=== PATIENT | female | born 1955 | race Caucasian/White ===

== ENCOUNTER → 2023-10-14 22:00 | Outpatient (REF) | payer MEDICARE, SELFPAY | LOC: DHSLP 22:00 | PROVIDERS: ATTENDING PHYSICIAN Registered Nurse | DX: G47.30 Sleep apnea, unspecified (principal); R06.83 Snoring; G47.8 Other sleep disorders | CPT/HCPCS: 95800 ==

== ENCOUNTER → 2024-01-30 12:11 | Outpatient (REF) | payer MEDICARE, SELFPAY ==
[2024-01-30 12:46] LABS: % Basophils 0.9 % (0-2); % Eosinophils 1.3 % (0-6); % Immature Granulocytes 0.3 % (0-0.5); % Lymphocytes 15.7 % (20.5-51.1); % Neutrophils 75.8 % (42.2-75.2); Absolute Basophils 0.1 10^3/uL (0-0.2); Absolute Eosinophils 0.1 10^3/uL (0-0.7); Absolute Lymphocytes 1.1 10^3/uL (1.2-3.4); Absolute Monocytes 0.4 10^3/uL (0.1-0.6); Absolute Neutrophils 5.3 10^3/uL (1.4-6.5); Hematocrit 40.7 % (37.0-47.0); Hemoglobin 13.6 g/dL (12.0-16.0); Mean Corp Hgb Conc. 33.4 g/dL (33.0-37.0); Mean Corpuscular Hgb 29.8 pg (27.0-31.0); Mean Corpuscular Volume 89.1 fL (81.0-99.0); Mean Platelet Volume 9.9 fL (7.4-10.4); Nucleated Red Blood Cells % 0 %; Platelet Count 343 10^3/uL (130-400); Red Blood Cell Count 4.57 10^6/uL (4.20-5.40); Red Cell Dist. Width 13.7 % (11.5-14.5)
[2024-01-30 12:52] LABS: Blood Urea Nitrogen 34 mg/dl (7-17); Carbon Dioxide 29 mmol/L (22-30); Chloride 102 mmol/L (98-107); Glucose 106 mg/dl (70-99); Sodium 139 mmol/L (135-145); eGFR > 60.00
== END ==
LOC: REG 12:11
PROVIDERS: ATTENDING PHYSICIAN Orthopaedic Surgery; FAMILY PHYSICIAN Internal Medicine
DX: Z01.818 Encounter for other preprocedural examination (principal)
CPT/HCPCS: 36415; 80048; 85025; 93005

== ENCOUNTER → 2024-07-23 16:40 | Outpatient (REF) | payer MEDICARE, SELFPAY | LOC: PAVMRI 16:40 | PROVIDERS: ATTENDING PHYSICIAN Orthopaedic Surgery; FAMILY PHYSICIAN Internal Medicine | DX: M54.40 Lumbago with sciatica, unspecified side (principal); M25.552 Pain in left hip | CPT/HCPCS: 72148; 73721 ==

== ENCOUNTER → 2024-08-10 09:55 | Outpatient (REF) | payer MEDICARE, SELFPAY | LOC: RAD 09:55 | PROVIDERS: ATTENDING PHYSICIAN Nurse Practitioner Adult Health; FAMILY PHYSICIAN Internal Medicine; REFERRING PHYSICIAN Obstetrics & Gynecology Gynecology | DX: R19.02 Left upper quadrant abdominal swelling, mass and lump (principal) | CPT/HCPCS: 76830; 76856 ==

== ENCOUNTER → 2024-10-17 16:37 | Outpatient (REF) | payer MEDICARE, SELFPAY | LOC: RCS 16:37 | PROVIDERS: ATTENDING PHYSICIAN Nurse Practitioner Family; OTHER PHYSICIAN Internal Medicine Interventional Cardiology | DX: R00.2 Palpitations (principal); R06.02 Shortness of breath; E03.9 Hypothyroidism, unspecified; I10 Essential (primary) hypertension | CPT/HCPCS: 93306 ==

== ENCOUNTER → 2024-11-12 13:50 | Outpatient (REF) | payer MEDICARE, SELFPAY | LOC: WDC 13:50 | PROVIDERS: ATTENDING PHYSICIAN Internal Medicine | DX: Z78.0 Asymptomatic menopausal state (principal); Z12.31 Encounter for screening mammogram for malignant neoplasm of breast | CPT/HCPCS: 77063; 77067; 77080 ==

== ENCOUNTER → 2024-11-27 10:45 | Outpatient (REF) | payer MEDICARE, SELFPAY | LOC: PAVMRI 10:45 | PROVIDERS: ATTENDING PHYSICIAN Obstetrics & Gynecology Gynecology; FAMILY PHYSICIAN Internal Medicine | DX: N94.9 Unspecified condition associated with female genital organs and menstrual cycle (principal) | CPT/HCPCS: 72197; A9575 ==

== ENCOUNTER 2025-02-22 10:57 | Emergency (ER) | payer MEDICARE, SELFPAY ==
[2025-02-22] VITALS (7 sets, daily range): BP systolic 132–151; BP diastolic 72–83; PULSE 74–80
[2025-02-22] MEDS: NSS 1000 IV (12:15)
[2025-02-22 12:32] LABS: % Eosinophils 2.8 % (0-6); % Immature Granulocytes 0.3 % (0-0.5); % Lymphocytes 22.5 % (20.5-51.1); % Neutrophils 62.4 % (42.2-75.2); Absolute Eosinophils 0.1 10^3/uL (0-0.7); Absolute Lymphocytes 0.9 10^3/uL (1.2-3.4); Absolute Monocytes 0.4 10^3/uL (0.1-0.6); Absolute Neutrophils 2.5 10^3/uL (1.4-6.5); Hematocrit 37.6 % (37.0-47.0); Hemoglobin 12.5 g/dL (12.0-16.0); Mean Corp Hgb Conc. 33.2 g/dL (33.0-37.0); Mean Corpuscular Hgb 29.9 pg (27.0-31.0); Mean Platelet Volume 9.7 fL (7.4-10.4); Nucleated Red Blood Cells % 0 %; Platelet Count 285 10^3/uL (130-400); Red Blood Cell Count 4.18 10^6/uL (4.20-5.40)
[2025-02-22 12:40] LABS: ALT (SGPT) 15 U/L (0-35); AST (SGOT) 19 U/L (14-36); Albumin 4.1 g/dl (3.5-5.0); Alkaline Phosphatase 50 U/L (38-126); Blood Urea Nitrogen 24 mg/dl (7-17); Calcium 9.9 mg/dl (8.4-10.2); Carbon Dioxide 31 mmol/L (22-30); Chloride 106 mmol/L (98-107); Glucose 110 mg/dl (70-99); Potassium 4.2 mmol/L (3.5-5.1); Sodium 141 mmol/L (135-145); Total Bilirubin 0.4 mg/dl (0.2-1.3); Total Protein 6.2 g/dl (6.3-8.2); eGFR > 60.00
[2025-02-22 12:51] LABS: Troponin I < 0.012 ng/ml
--- NOTE | 2025-02-22 12:53 | ED.GENMED ---
History of Present Illness
General
Chief Complaint: Dizziness
Time Seen by Provider: 02/22/25 11:22
History of Present Illness
History of Present Illness:
69-year-old female with history of hypertension presenting to the emergency department for persistent dizziness. Patient notes in September she was diagnosed with vertigo, has been getting vestibular therapy. She felt like since this morning has
felt like the dizziness is worse. Also notes the dizziness has been more pronounced since December after she fell and struck the back of her head. Notes that she was not evaluated at that time. Denies any present visual changes. Denies weakness or
numbness to extremities. She has been taking Dramamine. Denies chest pain or difficulty breathing. Denies abdominal pain or GI complaints. Denies additional acute medical complaints
Past History
Past History
ED Past Medical History: HTN and Psychiatric
ED Past Surgical History: Gynecological, Orthopedic and Tonsilectomy
Social History
Tobacco: Non-smoker
Alcohol: None
Drug: None
Personal:
Living: with family
Employment: Employed
Family History
Family History: Other
Phy Exam
Physical Exam
Physical Exam:
General: Well-appearing, no clinical signs of dehydration, nontoxic and in no acute distress
HEENT: protecting airway, bilateral horizontal nystagmus, pupils equal and reactive.
Neck: appears supple
CV: Normal heart rate, regular rhythm
Resp: No accessory muscle use, no increased work of breathing, lungs clear to auscultation bilaterally
Abd: Soft and non-distended, no tenderness to palpation, normal bowel sounds
Extremities: No deformities, no swelling, no erythema
Neuro: alert, no focal neurologic deficit
: deferred
Rectal: deferred
Psych: Normal affect
Skin: Intact
Course
Orders/Labs/Results
Orders:
Orders
02/22/25 11:02
ECG [Electrocardiogram (*1)] Urgent
Reason for Study: Vertigo / Dizzy
EKG- Treatment ONCE
02/22/25 12:04
CT Head W/o Iv Contrast Urgent
Comment:
Reason For Exam: dizzy after a fall
Orthostatic VS- Treatment ONCE
0.9% Sodium Chloride 1000 ml [Nss] 1,000 ml IV BOLUS
02/22/25 12:16
Complete Blood Count/With Diff Urgent
Comprehensive Metabolic Panel Urgent
Troponin I Urgent
Abnormal Lab Results
02/22/25
12:16
WBC 4.0 L 10^3/uL
(4.8-10.8)
RBC 4.18 L 10^6/uL
(4.20-5.40)
Absolute Lymphs (auto) 0.9 L 10^3/uL
(1.2-3.4)
Monocytes % 11.0 H %
(1.7-9.3)
Carbon Dioxide 31 H mmol/L
(22-30)
BUN 24 H mg/dl
(7-17)
Glucose 110 H mg/dl
(70-99)
Total Protein 6.2 L g/dl
(6.3-8.2)
02/22/25 12:16
02/22/25 12:16
Vital Signs
Initial and Last Documented VS:
Initial Vital Signs
Temp Pulse Resp BP Pulse Ox
98.2 F 76 18 151/79 97
02/22/25 10:59 02/22/25 10:59 02/22/25 10:59 02/22/25 10:59 02/22/25 10:59
Last Documented Vital Signs
Temp Pulse Resp BP Pulse Ox
98.2 F 76 27 133/74 97
02/22/25 10:59 02/22/25 14:15 02/22/25 14:15 02/22/25 14:00 02/22/25 14:15
MDM/Problems Addressed
MDM/Problems Addressed:
69-year-old female with history of vertigo hypertension presenting for dizziness which has been worsening since this morning. Vital signs on arrival are significant for mild hypertension.
On exam patient is resting comfortably, no acute distress or discomfort. Regarding her dizziness, do contain suspect vertiginous component. Patient with bilateral horizontal nystagmus. EKG obtained, nonischemic, no arrhythmia with lower suspicion
for cardiac pathology. No present focal neurologic deficits on exam with lower suspicion for acute central neurologic process. Patient however does note that symptoms did get worse after she fell and hit her head with suspected concussion.
Patient was never evaluated at that time. For this reason we will obtain CT brain imaging. Will screen with laboratory analysis to ensure no electrolyte derangement. Will obtain orthostatic vital signs to ensure no volume depletion. Will start
for therapeutics. Will continue to monitor
14:20 - Patient's labs are unremarkable. Orthostatics are negative. CT brain is unremarkable. On reassessment patient remains stable. Do suspect that this is again a longstanding issue, without acute concern for CVA. Notes that she is scheduled
to see an hose cementer on Tuesday, because she would like to follow-up with a neuro-hose cementer. She recently had an exam by the entertainment lawyer that was reportedly negative. Due to persistence of symptoms over several months, recommending
outpatient MRI. Advise discussing with her PCP for referral. Otherwise feel stable for discharge for continued outpatient vestibular therapy and supportive therapy. Return precautions discussed
*EKG
Interpreted by ED Provider?: Yes
EKG Intrepretation Date: 02/22/25
EKG Intrepretation Time: 13:01
Interpretation: normal
Heart Rate: 70
Rate: normal
Rhythm: sinus
Viola: normal axis
Interval: normal interval
QRS Pattern: normal QRS
Ischemia: no ischemia
*Critical Care Note
Total Time (30-74mins, 75-104mins- exclusive of procedures): Not Applicable
ED Attending Note
-
Portions of this chart may have been created with voice recognition software.� Occasional wrong word or��sound alike� substitutions may have occurred due to the inherent limitations of voice recognition software.
Discharge Plan
Departure
Prescriptions:
No Action
levothyroxine 100 MCG tablet
100 mcg PO DAILY
diphenhydramine HCl [Banophen] 50 MG capsule
50 mg PO HS
hydrocodone-acetaminophen [Vicodin] 1 EACH tablet
1 - 2 ea PO Q6HPRN PRN (Reason: pain) Qty: 20 0RF
Referrals:
Hilary Rose MD [Family Provider, Internal Medicine]
Interventions
Interventions:
*Risk Screen - Suicide Last Done: 02/22/25 10:59
*General Assessment Last Done: 02/22/25 12:36
*Neglect/Abuse Screening Last Done: 02/22/25 10:59
*ED- Fall Risk Assessment Last Done: 02/22/25 12:36
ED- Neurological Assessment Last Done: 02/22/25 12:35
ED Swallowing Screen Last Done: 02/22/25 12:36
Discharge Date and Time
Print Language: PANAMANIAN
== END 2025-02-22 14:48 | disposition home or self-care (01) ==
LOC: EMR 10:57
PROVIDERS: EMERGENCY PHYSICIAN Student in an Organized Health Care Education/Training Program; FAMILY PHYSICIAN Internal Medicine
DX: R42 Dizziness and giddiness (principal); I10 Essential (primary) hypertension
CPT/HCPCS: 99285; 96360; 70450; 80053; 84484; 85025; 93005

== ENCOUNTER → 2025-02-25 15:25 | Outpatient (REF) | payer MEDICARE, SELFPAY | LOC: MRI 15:25 | PROVIDERS: ATTENDING PHYSICIAN Internal Medicine | DX: R42 Dizziness and giddiness (principal) | CPT/HCPCS: 70553; A9575 ==